=== PATIENT | female | born 1940 | race African-American/Black ===

== ENCOUNTER 2025-07-18 10:28 | Emergency (ER) | payer OTHER ==
[~2025-07-18] VITALS: Ht 162.6 cm; Wt 74.0 kg
[2025-07-18 10:31] VITALS: O2SAT 98
[2025-07-18 11:11] LABS: BASOPHILS % 0.8 % (0.0-2.0); EOSINOPHILS % 2.2 % (0.0-5.0); HEMATOCRIT. 41.4 % (36.0-48.0); HEMOGLOBIN. 13.9 g/dL (12.0-16.0); LYMPHOCYTES % 37.1 % (20.0-50.0); MEAN PLATELET VOLUME 8.7 fl (7.4-10.4); MONOCYTES % 6.3 % (2.0-8.0); NEUTROPHILS % 53.6 % (40.0-76.0); PLATELET 301 x1000/uL (130-400); RED BLOOD CELL COUNT 4.47 mill/uL (4.2-5.4); RED CELL DISTRIBUTION WIDTH 14.3 % (11.6-14.6)
[2025-07-18 12:14] LABS: CREATININE 0.8 mg/dL (0.6-1.0)
[2025-07-18 12:15] LABS: TROPONIN I HIGH SENSITIVITY 12 ng/L (3.0-34); UREA NITROGEN BLOOD < 5 mg/dL (9-23)
[2025-07-18 12:16] LABS: ASPARTATE AMINOTRANSFERASE 18 IU/L (<34)
[2025-07-18 12:17] LABS: BILIRUBIN TOTAL 0.9 mg/dL (0.1-1.0); PROTEIN TOTAL 7.4 g/dL (6.0-8.3)
[2025-07-18 13:24] LABS: TROPONIN I HIGH SENSITIVITY 12 ng/L (3.0-34)
[2025-07-18 13:51] VITALS: BP 162/75; PULSE 58; RESP 18; TEMP 36.7; O2SAT 98
== END 2025-07-18 14:20 | disposition short-term general hospital (02) ==
LOC: ER 10:28 → EDBEDREQ 10:49 → CANBEDREQ 12:52 → ER 14:20
DX: R53.1 Weakness (principal); R42 Dizziness and giddiness; R00.8 Other abnormalities of heart beat; I49.9 Cardiac arrhythmia, unspecified; I10 Essential (primary) hypertension; G43.909 Migraine, unspecified, not intractable, without status migrainosus; Z79.899 Other long term (current) drug therapy
CPT/HCPCS: 36415; 71045; 80053; 84484; 85025; 93005; 99285